=== PATIENT | male | born 1950 | race American Indian/Alaskan Native ===

== ENCOUNTER 2016-10-12 17:58 | Emergency (ER) | payer MEDICAID ==
[2016-10-12] MEDS ORDERED: PERCOCET 5/325 PO ONE (18:45)
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
[2016-10-12 20:56] VITALS: BP 130/76
[2016-10-13] MEDS ORDERED: PERCOCET 5/325 PO ONE (02:18)
--- NOTE | 2016-10-13 09:52 | XRay Report ---
LUMBAR SPINE THREE VIEWS: 10/12/16 17:58:00 CLINICAL: Fall on buttock. Quadriplegic. FINDINGS: Normal vertebral body height, alignment and disk spaces. Moderate degenerative change of the spine. No fracture. The pedicles are intact. IVC filter. Normal soft tissues. IMPRESSION: Degenerative change and no apparent traumatic injury.
--- NOTE | 2016-10-13 09:53 | XRay Report ---
AP PELVIS ONE VIEW: 10/12/16 17:58:00 CLINICAL: Fall on buttock. Quadriplegic. FINDINGS: Moderate osteopenia. Severe osteoarthritis of both hips. No fracture or dislocation. Normal soft tissues. Abundant stool in the colon. IMPRESSION: Arthritis of the hips and no apparent traumatic injury.
== END 2016-10-13 03:00 | disposition home or self-care (01) ==
LOC: ED 17:58
DX: S30.0XXA Contusion of lower back and pelvis, initial encounter (principal); E11.9 Type 2 diabetes mellitus without complications; K21.9 Gastro-esophageal reflux disease without esophagitis; R56.9 Unspecified convulsions; R41.9 Unspecified symptoms and signs involving cognitive functions and awareness; E78.5 Hyperlipidemia, unspecified; Z86.718 Personal history of other venous thrombosis and embolism; Z88.2 Allergy status to sulfonamides; Z88.8 Allergy status to other drugs, medicaments and biological substances; W07.XXXA Fall from chair, initial encounter; Y93.9 Activity, unspecified; Y99.9 Unspecified external cause status; Y92.9 Unspecified place or not applicable
CPT/HCPCS: 72100; 72170; 99284

== ENCOUNTER 2017-02-07 22:28 | Emergency (ER) | payer MEDICARE, MEDICAID ==
[2017-02-08] MEDS ORDERED: MORPHINE IV ONE (00:18)
[2017-02-08] MEDS ORDERED: ZOFRAN IV ONE (00:18)
[2017-02-08] MEDS ORDERED: SUBLIMAZE IV ONE (00:20)
--- NOTE | 2017-02-08 00:22 | Emergency Department Report ---
HPI - General Chief Complaint: Pain General Time Seen by Provider: 02/08/17 00:10 - HPI HPI: Room 24 The patient is a 66-year-old male presenting with a chief complaint of arthralgia. When asked how he is feeling currently the patient replies "I feel all right." The patient is a quadriplegic resident at [facility] states she was sent to the ED because he is complaining of pain in bilateral elbows and bilateral knees for several months. The patient states this been attributed to arthritis in the past. Location: Bilateral elbows, bilateral knees Duration: 6 months Quality: Soreness Severity: Moderate Modifying factors: [see above] Context: [see above] Mode of transportation: [not driving] ED Past Medical Hx - Past Medical History Previous Medical History?: Yes Hx Diabetes: Yes Hx Deep Vein Thrombosis: Yes Hx GERD: Yes Hx Renal Disease: Yes (CHRONIC UTI) Hx Seizures: Yes Hx Psychiatric Treatment: Yes (ANXIETY MAJOR DEPRESSIVE DISORDER) Additional medical history: quadriplegia, Cervical Spinal Cord Injury, DVT, HYPERLIPIDEMIA CYSTITIS CAUDA EQUINA SYMDROME, CHRONIC PAIN, HYPERLIPIDEMIA, CONSTIPATION VIT D DEFICIENCY - Surgical History Past Surgical History?: Yes Additional Surgical History: [place] filter - Family History Family history: no significant - Social History Smoking Status: Former Smoker Substance Use Type: None - Medications Home Medications: Home Medications Medication Instructions Recorded Confirmed Last Taken Type LORazepam [Ativan] 0.5 mg PO QHS 10/12/16 10/12/16 Unknown History Omeprazole Magnesium [PriLOSEC Otc] 20 mg PO QDAY 10/12/16 10/12/16 Unknown History Pregabalin [Lyrica] 300 mg PO BID 10/12/16 10/12/16 Unknown History Warfarin [Coumadin] 5 mg PO 6XW 10/12/16 10/12/16 Unknown History Warfarin [Coumadin] 7.5 mg PO 1XW 10/12/16 10/12/16 Unknown History fentaNYL [Duragesic 50mcg] 1 each TD Q72H 10/12/16 10/12/16 Unknown History oxyCODONE /ACETAMINOPHEN [Percocet 1 tab PO Q6HR PRN 10/12/16 10/12/16 Unknown History 5/325] oxyCODONE /ACETAMINOPHEN [Percocet 2 tab PO Q6HR PRN 10/12/16 10/12/16 Unknown History 5/325] Levofloxacin [Levaquin] 250 mg PO QDAY #7 tablet 02/08/17 Unknown Rx oxyCODONE /ACETAMINOPHEN [Percocet 1 - 2 tab PO Q6HR PRN #20 tablet 02/08/17 Unknown Rx 5/325] ED Review of Systems ROS: Stated complaint: UTI Other details as noted in HPI Comment: All other systems reviewed and negative Constitutional: denies: chills, fever Eyes: denies: eye pain, eye discharge, vision change ENT: denies: ear pain, throat pain Respiratory: denies: cough, shortness of breath, wheezing Cardiovascular: denies: chest pain, palpitations Endocrine: no symptoms reported Gastrointestinal: denies: abdominal pain, nausea, diarrhea Genitourinary: denies: urgency, dysuria Musculoskeletal: arthralgia Skin: denies: rash, lesions Neurological: denies: headache, weakness, paresthesias Psychiatric: denies: anxiety, depression Hematological/Lymphatic: denies: easy bleeding, easy bruising Physical Exam - Physical Exam Vital Signs: Vital Signs 02/07/17 02/07/17 02/07/17 22:46 22:51 22:54 Temperature 97.9 F Pulse Rate 52 L 56 L Respiratory 8 L 18 Rate Blood Pressure 104/62 Blood Pressure 104/62 [Left] O2 Sat by Pulse 94 95 94 Oximetry 02/07/17 02/07/17 02/07/17 22:55 23:00 23:05 Temperature Pulse Rate 50 L 51 L 51 L Respiratory 9 L 9 L 9 L Rate Blood Pressure 104/62 104/63 104/63 Blood Pressure [Left] O2 Sat by Pulse 95 93 95 Oximetry 02/07/17 02/07/17 23:11 23:15 Temperature Pulse Rate 52 L 49 L Respiratory 9 L 9 L Rate Blood Pressure 104/63 109/64 Blood Pressure [Left] O2 Sat by Pulse 95 Oximetry Physical Exam: GENERAL: The patient is well-developed well-nourished male lying on stretcher not appearing to be in acute distress. [] HEENT: Normocephalic. Atraumatic. Extraocular motions are intact. Patient has moist mucous membranes. NECK: Supple. Trachea midline CHEST/LUNGS: Clear to auscultation. There is no respiratory distress noted. HEART/CARDIOVASCULAR: Regular. There is no tachycardia. There is no gallop rub or murmur. ABDOMEN: Abdomen is soft, nontender. Patient has normal bowel sounds. There is no abdominal distention. SKIN: There is no rash. There is no diaphoresis. NEURO: The patient is awake, alert, and oriented. The patient is cooperative. The patient is quadriplegic. The patient has normal speech MUSCULOSKELETAL: There is increased warmth of the elbows or knees. There is no evidence of effusion of bilateral knees or elbows. There is no evidence of acute injury. ED Course Vital Signs 02/07/17 02/07/17 02/07/17 22:46 22:51 22:54 Temperature 97.9 F Pulse Rate 52 L 56 L Respiratory 8 L 18 Rate Blood Pressure 104/62 Blood Pressure 104/62 [Left] O2 Sat by Pulse 94 95 94 Oximetry 02/07/17 02/07/17 02/07/17 22:55 23:00 23:05 Temperature Pulse Rate 50 L 51 L 51 L Respiratory 9 L 9 L 9 L Rate Blood Pressure 104/62 104/63 104/63 Blood Pressure [Left] O2 Sat by Pulse 95 93 95 Oximetry 02/07/17 02/07/17 23:11 23:15 Temperature Pulse Rate 52 L 49 L Respiratory 9 L 9 L Rate Blood Pressure 104/63 109/64 Blood Pressure [Left] O2 Sat by Pulse 95 Oximetry ED Medical Decision Making - Lab Data Result diagrams: 02/08/17 00:26 02/08/17 00:26 Laboratory Tests 02/08/17 02/08/17 02/08/17 00:26 00:26 00:26 WBC 6.0 RBC 4.22 Hgb 11.9 Hct 35.4 L MCV 84 MCH 28 MCHC 34 RDW 15.5 H Plt Count 177 Lymph % (Auto) 34.2 [place] % (Auto) 10.2 H Eos % (Auto) 2.2 Baso % (Auto) 0.8 Lymph # 2.1 [place] # 0.6 Eos # 0.1 Baso # 0.0 Seg Neutrophils % 52.6 Seg Neutrophils # 3.2 PT 15.8 H INR 1.27 H APTT 33.5 Sodium 140 Potassium 3.9 Chloride 104.8 Carbon Dioxide 23 Anion Gap 16 BUN 10 Creatinine 0.8 Estimated GFR > 60 BUN/Creatinine Ratio 12.50 Glucose 99 Calcium 8.3 L Total Bilirubin 0.30 AST 12 ALT 10 Alkaline Phosphatase 104 Total Creatine Kinase 112 CK-MB (CK-2) Rel Index 1.2 Troponin T < 0.010 Total Protein 6.7 Albumin 3.3 L Albumin/Globulin Ratio 1.0 Urine Color Urine Turbidity Urine pH Ur Specific [place] Urine Protein Urine Glucose (UA) Urine Ketones Urine Blood Urine Nitrite Urine Bilirubin Urine Urobilinogen Ur Leukocyte Esterase Urine WBC (Auto) Urine RBC (Auto) Urine Bacteria (Auto) Triple Phos Crystals Urine Mucus 02/08/17 01:51 WBC RBC Hgb Hct MCV MCH MCHC RDW Plt Count Lymph % (Auto) [place] % (Auto) Eos % (Auto) Baso % (Auto) Lymph # [place] # Eos # Baso # Seg Neutrophils % Seg Neutrophils # PT INR APTT Sodium Potassium Chloride Carbon Dioxide Anion Gap BUN Creatinine Estimated GFR BUN/Creatinine Ratio Glucose Calcium Total Bilirubin AST ALT Alkaline Phosphatase Total Creatine Kinase CK-MB (CK-2) Rel Index Troponin T Total Protein Albumin Albumin/Globulin Ratio Urine Color Yellow Urine Turbidity Slightly-cloudy Urine pH 8.0 H Ur Specific [place] 1.017 Urine Protein 100 mg/dl Urine Glucose (UA) Neg Urine Ketones Neg Urine Blood Neg Urine Nitrite Neg Urine Bilirubin Neg Urine Urobilinogen 2.0 Ur Leukocyte Esterase Lg Urine WBC (Auto) 15.0 H Urine RBC (Auto) 9.0 Urine Bacteria (Auto) 2+ Triple Phos Crystals 2+ Urine Mucus Few - Differential Diagnosis arthritis, arthralgia Critical care attestation.: If time is entered above; I have spent that time in minutes in the direct care of this critically ill patient, excluding procedure time. ED Disposition Clinical Impression: Arthralgia, UTI (lower urinary tract infection) Disposition: DC/TX ANOTHER TYPE HEALTHCARE Is pt being admited?: No Does the pt Need Aspirin: No Condition: Stable Instructions: Arthralgia (ED) Additional Instructions: Return to the emergency department immediately should you develop worsening symptoms, fever, inability to tolerate food or liquid or any other concerns. Prescriptions: Levofloxacin [Levaquin] 250 mg PO QDAY #7 tablet oxyCODONE /ACETAMINOPHEN [Percocet 5/325] 1 - 2 tab PO Q6HR PRN #20 tablet PRN Reason: Pain Referrals: PRIMARY CARE, [Primary Care Provider] - 3-5 Days Time of Disposition: 02:39
[2017-02-08 00:53] LABS: Basophils % (Auto) 0.8 % (0.0-1.8); Eosinophils % (Auto) 2.2 % (0.0-4.3); Hematocrit 35.4 % (35.5-45.6); Hemoglobin 11.9 gm/dl (11.8-15.2); Mean Corpuscular HGB Conc 34 % (32-34); Mean Corpuscular Hemoglobin 28 pg (28-32); Mean Corpuscular Volume 84 fl (84-94); Platelet Count 177 K/mm3 (140-440); Red Blood Count 4.22 M/mm3 (3.65-5.03); Red Cell Distribution Width 15.5 % (13.2-15.2)
[2017-02-08 01:02] LABS: INR 1.27 (0.87-1.13)
[2017-02-08 01:03] LABS: Partial Thromboplastin Time 33.5 Sec. (24.2-36.6)
[2017-02-08 01:08] LABS: Creatine Kinase MB 1.4 ng/mL (0.0-4.0)
[2017-02-08 01:10] LABS: Alanine Aminotransferase 10 units/L (7-56); Albumin 3.3 g/dL (3.9-5); Alkaline Phosphatase 104 units/L (35-129); Anion Gap 16 mmol/L; Blood Urea Nitrogen 10 mg/dL (9-20); Calcium 8.3 mg/dL (8.4-10.2); Carbon Dioxide 23 mmol/L (22-30); Chloride 104.8 mmol/L (98-107); Creatine Kinase 112 units/L (55-170); Glucose 99 mg/dL (75-100); Potassium 3.9 mmol/L (3.6-5.0); Sodium 140 mmol/L (137-145); Total Protein 6.7 g/dL (6.3-8.2)
[2017-02-08 02:03] LABS: Bacteria,Urine 2+ /HPF (Negative); Bilirubin,Urine NEG (Negative); Blood,Urine NEG (Negative); Ketones,Urine NEG (Negative); Leukocyte Esterase,Urine LG (Negative); Mucus,Urine FEW /HPF; Nitrite,Urine NEG (Negative)
[2017-02-08 05:42] VITALS: BP 123/73
== END 2017-02-08 06:05 | disposition other institution (70) ==
LOC: ED 22:28
DX: N39.0 Urinary tract infection, site not specified (principal); M25.521 Pain in right elbow; M25.522 Pain in left elbow; M25.561 Pain in right knee; M25.562 Pain in left knee; E11.9 Type 2 diabetes mellitus without complications; K21.9 Gastro-esophageal reflux disease without esophagitis; R56.9 Unspecified convulsions; F32.9 Major depressive disorder, single episode, unspecified; F41.9 Anxiety disorder, unspecified; G89.29 Other chronic pain; Z79.01 Long term (current) use of anticoagulants; Z86.718 Personal history of other venous thrombosis and embolism; Z87.891 Personal history of nicotine dependence
CPT/HCPCS: 36415; 80053; 81001; 82550; 82553; 84484; 85025; 85610; 85730; 96374; 96375; 99284; J2405; J3010

== ENCOUNTER 2017-03-25 09:13 | Outpatient (CLI) | payer MEDICARE ==
[2017-03-25 11:33] LABS: Blood Urea Nitrogen 11 mg/dL (9-20)
[2017-03-25] MEDS ORDERED: NACL ONE (12:01)
== END 2017-03-25 09:14 | disposition home or self-care (01) ==
LOC: CT 09:13
PROVIDERS: ATTEND Internal Medicine
DX: E11.9 Type 2 diabetes mellitus without complications (principal); Z87.891 Personal history of nicotine dependence
CPT/HCPCS: 36415; 82565; 84520

== ENCOUNTER 2017-08-28 11:38 | Outpatient (CLI) | payer MEDICARE ==
--- NOTE | 2017-08-28 12:14 | Cat Scan Report ---
CT scan of the without IV contrast: History: CVA. Findings: Ventricles are midline in location. Dilated right lateral ventricle. Encephalomalacia distribution of right middle cerebral artery. No evidence of acute ischemia or hemorrhage. Mild to moderate volume loss. No extra-axial fluid collection. Normal sinuses and mastoid air cells. 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 Ipsilateral dilated right ventricle. No acute ischemia or hemorrhage.
== END 2017-08-28 11:39 | disposition home or self-care (01) ==
LOC: CT 11:38
PROVIDERS: ATTEND Internal Medicine
DX: I69.951 Hemiplegia and hemiparesis following unspecified cerebrovascular disease affecting right dominant side (principal); G93.89 Other specified disorders of brain
CPT/HCPCS: 70450